=== PATIENT | male | born 1940 | race African-American/Black ===

== ENCOUNTER 2017-03-04 08:21 | Emergency (ER) | payer MEDICAID, MEDICARE ==
[~2017-03-04] VITALS: Ht 177.8 cm; Wt 70.0 kg
[2017-03-04] MEDS ORDERED: METHYLPREDNISOLONE SOD SUCC 125 MG/2 ML VIAL IV STA (09:30)
[2017-03-04] MEDS ORDERED: IPRATROPIUM BROMIDE (0.02%) 0.5MG/2.5ML NEB HHN STA (09:30)
[2017-03-04 09:52] LABS: BASOPHILS % 0.5 % (0.0-2.0); EOSINOPHILS % 1.2 % (0.0-5.0); HEMATOCRIT. 29.4 % (42.0-52.0); LYMPHOCYTES % 11.8 % (20.0-50.0); MEAN CORPUSCULAR HEMOGLOBIN 30.6 pg (28.0-32.0); MEAN CORPUSCULAR VOLUME 90.4 fL (80.0-94.0); MEAN PLATELET VOLUME 8.3 fl (7.4-10.4); MONOCYTES % 7.1 % (2.0-8.0); NEUTROPHILS % 79.4 % (40.0-76.0); PLATELET 163 x1000/uL (130-400); RED BLOOD CELL COUNT 3.25 mill/uL (4.7-6.1); RED CELL DISTRIBUTION WIDTH 15.8 % (11.6-14.6)
[2017-03-04 09:59] LABS: CHLORIDE 106 mEq/L (98-107)
[2017-03-04 10:01] LABS: PROTHROMBIN TIME 10.4 sec
[2017-03-04 10:07] LABS: CARBON DIOXIDE 34 mEq/L (21-32)
[2017-03-04 10:08] LABS: TROPONIN I 0.06 ng/mL (0.00-0.04)
[2017-03-04] MEDS: ALBUTEROL (0.083%) 2.5MG/3ML NEB HHN SCH (10:15)
[2017-03-04] MEDS ORDERED: POTASSIUM CHLORIDE 20MEQ TABLET SR PO ONE (10:30)
[2017-03-04] MEDS ORDERED: IPRATROPIUM/ALBUTEROL 0.5-3(2.5)MG/3ML NEB INH SCH (11:15)
[2017-03-04] MEDS ORDERED: HYDROCODONE/ACETAMINOPHEN 5/325MG TABLET PO PRN (11:15)
[2017-03-04] MEDS ORDERED: HYDRALAZINE 20MG/ML VIAL IV PRN (11:15)
[2017-03-04] MEDS ORDERED: METHYLPREDNISOLONE SOD SUCC 125 MG/2 ML VIAL IV SCH (11:15)
[2017-03-04] MEDS ORDERED: DIPHENHYDRAMINE 50MG/ML VIAL IV PRN (11:15)
[2017-03-04] MEDS ORDERED: ACETAMINOPHEN 325MG TABLET PO PRN (11:15)
[2017-03-04] MEDS ORDERED: ONDANSETRON HCL 4MG/2ML VIAL IV PRN (11:15)
[2017-03-04] MEDS ORDERED: IPRATROPIUM/ALBUTEROL 0.5-3(2.5)MG/3ML NEB INH PRN (11:15)
[2017-03-04] MEDS ORDERED: AZITHROMYCIN 500 MG in DEXT 5% WATER 250 ML IV SCH (11:15)
[2017-03-04] MEDS ORDERED: CLONIDINE 0.1MG TABLET PO PRN (11:15)
[2017-03-04] MEDS ORDERED: CEFTRIAXONE 1 G PREMIX 50 ML IV SCH (11:15)
[2017-03-04 11:30] VITALS: BP 162/89
[2017-03-04] MEDS ORDERED: CEFTRIAXONE 1 G PREMIX 50 ML IV NR (11:45)
[2017-03-04] MEDS ORDERED: AZITHROMYCIN 500 MG in DEXT 5% WATER 250 ML IV NR (12:00)
[2017-03-06] MEDS ORDERED: QUET400T PO (19:42)
[2017-03-06] MEDS ORDERED: MIRT45TA PO (19:43)
== END 2017-03-04 12:55 | disposition left against medical advice (07) ==
LOC: ER 08:21 → CANBEDREQ 12:38 → ER 12:55
DX: J44.1 Chronic obstructive pulmonary disease with (acute) exacerbation (principal); J45.909 Unspecified asthma, uncomplicated; F17.290 Nicotine dependence, other tobacco product, uncomplicated; I51.7 Cardiomegaly; R73.9 Hyperglycemia, unspecified; E87.6 Hypokalemia; N17.9 Acute kidney failure, unspecified; I10 Essential (primary) hypertension; D64.9 Anemia, unspecified
CPT/HCPCS: 36415; 71010; 80053; 83036; 83880; 84484; 85025; 85610; 93005; 96374; 99291; J0456; J2930; J7030; J7611; J0696; J7060

== ENCOUNTER 2017-07-07 02:15 | Inpatient (IN) | payer MEDICARE, MEDICAID ==
[2017-07-07] VITALS (9 sets, daily range): BP systolic 158–194; BP diastolic 78–94
[~2017-07-07] VITALS: Ht 167.6 cm; Wt 89.5 kg
[~2017-07-07 02:15] MED LIST: MIRT45TA PO; QUET400T PO
[2017-07-07] MEDS ORDERED: AZITHROMYCIN 500 MG in DEXT 5% WATER 250 ML IV ONE (02:45)
[2017-07-07] MEDS ORDERED: CEFTRIAXONE 1 G PREMIX 50 ML IV ONE (02:45)
[2017-07-07] MEDS ORDERED: SODIUM CHLORIDE 0.9% 1000ML BAG (SEPSIS BOLUS) IV ONE (02:45)
[2017-07-07 03:07] LABS: HEMATOCRIT. 23.2 % (42.0-52.0); HEMOGLOBIN. 7.9 g/dL (14.0-18.0); MEAN CORPUSCULAR HEMOGLOBIN 31.3 pg (28.0-32.0); MEAN CORPUSCULAR VOLUME 92.2 fL (80.0-94.0); MEAN PLATELET VOLUME 9.6 fl (7.4-10.4); PLATELET 134 x1000/uL (130-400); RED BLOOD CELL COUNT 2.52 mill/uL (4.7-6.1); RED CELL DISTRIBUTION WIDTH 18.3 % (11.6-14.6)
[2017-07-07 03:16] LABS: INR 1.1
[2017-07-07 03:24] LABS: CARBON DIOXIDE 32 mEq/L (21-32); CHLORIDE 95 mEq/L (98-107); ETHANOL BLOOD < 10 mg/dL; TROPONIN I < 0.02 ng/mL (0.00-0.04)
[2017-07-07] MEDS ORDERED: SODIUM CHLORIDE 10% FOR INH 15ML VIAL NEB INH SCH (03:30)
[2017-07-07 05:18] LABS: BG CARBOXYHEMOGLOBIN 0.3 % (0.5-1.5); BG DEOXYHEMOGLOBIN 3.5 % (0.0-5.0); BG FRACTION INSPIRED OXYGEN 35; BG HCO3 ACT 32.8 mmol/L (22.0-26.0); BG METHEMOGLOBIN 0.6 % (0.0-1.5); BG OXYGEN SATURATION 96.5 % (92.0-98.5); BG OXYHEMOGLOBIN 95.6 % (94.0-97.0); BG PCO2 54.3 mmHg (35.0-45.0); BG PH 7.399 (7.350-7.450); BG PO2 90.2 mmHg (75.0-100.0); BG SAMPLE SITE RIGHT RADIAL; BG TIDAL VOLUME(mL) 500 mL; BG TOTAL HEMOGLOBIN 8.8 g/dL (12.0-18.0); BG VENT MODE VENT - A/C; BG VENT RATE 24 set
[2017-07-07 05:38] LABS: CLARITY URINE CLOUDY (CLEAR); COLOR URINE YELLOW (YELLOW); GLUCOSE URINE NEGATIVE (NEGATIVE); KETONES URINE NEGATIVE (NEGATIVE); LEUKOCYTE ESTERASE URINE 2+ (NEGATIVE); NITRITE URINE NEGATIVE (NEGATIVE); OCCULT BLOOD URINE NEGATIVE (NEGATIVE); PH URINE 5.5 (4.5-8.0); PROTEIN URINE 3+ (NEGATIVE); SPECIFIC GRAVITY URINE 1.018 (1.005-1.030); UROBILINOGEN URINE 0.2 E.U./dL (0.2-1.0)
[2017-07-07 05:45] LABS: *AMPHETAMINES SCREEN URINE NEGATIVE (NEGATIVE); *BARBITURATES SCREEN URINE NEGATIVE (NEGATIVE); *BENZODIAZEPINES SCREEN URINE NEGATIVE (NEGATIVE); *COCAINE SCREEN URINE NEGATIVE (NEGATIVE); CANNABINOID URINE SCREEN NEGATIVE (NEGATIVE); METHADONE URINE SCREEN NEGATIVE (NEGATIVE); OPIATES URINE SCREEN NEGATIVE (NEGATIVE); PHENCYCLIDINE URINE SCREEN NEGATIVE (NEGATIVE)
[2017-07-07 06:53] LABS: PLATELET ESTIMATE NORMAL
[2017-07-07] MEDS ORDERED: ONDANSETRON HCL 4MG/2ML VIAL IV PRN (08:15)
[2017-07-07] MEDS ORDERED: ACETAMINOPHEN 325MG TABLET PO PRN (08:15)
[2017-07-07] MEDS ORDERED: NA PHOS,M-B/NA PHOS,DI-BA ENEMA 118ML PR PRN ×3 (08:15→10:45)
[2017-07-07] MEDS ORDERED: MAGNESIUM/ALUMINUM HYDROXIDE/SIMETHICONE 30ML UDC PO PRN (08:15)
[2017-07-07] MEDS ORDERED: MORPHINE SULFATE 2 MG/ML CPJ (NOT FOR IM USE) IV PRN (08:15)
[2017-07-07] MEDS ORDERED: LORAZEPAM 0.5MG TABLET PO PRN (08:15)
[2017-07-07] MEDS ORDERED: GUAIFENESIN 200MG/10ML SUGAR FREE UDC PO PRN (08:15)
[2017-07-07] MEDS ORDERED: DOCUSATE SODIUM 100MG CAPSULE PO PRN (08:15)
[2017-07-07] MEDS ORDERED: DIPHENHYDRAMINE 50MG/ML VIAL IV PRN (08:15)
[2017-07-07] MEDS ORDERED: HYDROCODONE/ACETAMINOPHEN 5/325MG TABLET PO PRN (08:15)
[2017-07-07] MEDS: CLONIDINE 0.1MG TABLET PO PRN (09:54)
[2017-07-07] MEDS ORDERED: DEXT 5%/0.45% NACL KCL 10MEQ/L 1,000 ML IV SCH ×2 (10:00→19:00)
[2017-07-07] MEDS ORDERED: MULTIVIT W/MINERALS PEG (10:17)
[2017-07-07] MEDS ORDERED: FLEETS ENEMA RC (10:17)
[2017-07-07] MEDS ORDERED: THEO200T17 PEG (10:17)
[2017-07-07] MEDS ORDERED: [UNRECOGNIZED DRUG - OTHER] PEG (10:17)
[2017-07-07] MEDS ORDERED: RISP1TAB26 PEG (10:17)
[2017-07-07] MEDS ORDERED: FAMO20TA8 PEG (10:17)
[2017-07-07] MEDS ORDERED: VALP250S4 PEG (10:17)
[2017-07-07] MEDS ORDERED: MAGN800O PEG (10:17)
[2017-07-07] MEDS ORDERED: AMLO10TA80 PEG (10:17)
[2017-07-07] MEDS ORDERED: BISA10SU62 RC (10:17)
[2017-07-07] MEDS ORDERED: DOCU-138 PEG (10:17)
[2017-07-07] MEDS ORDERED: HYDR-4135 PEG (10:17)
[2017-07-07] MEDS ORDERED: DOXA4TAB3 PEG (10:17)
[2017-07-07] MEDS ORDERED: LORA1TAB PEG (10:17)
[2017-07-07] MEDS ORDERED: CRAN3875 PEG (10:17)
[2017-07-07] MEDS ORDERED: LORAZEPAM 1MG TABLET PEG PRN (10:30)
[2017-07-07] MEDS ORDERED: VALPROATE SODIUM 250 MG PEG SCH (10:30)
[2017-07-07] MEDS ORDERED: THEOPHYLLINE ANHYDROUS 200 MG PEG SCH (10:30)
[2017-07-07] MEDS ORDERED: [UNRECOGNIZED DRUG - OTHER] PEG SCH (10:30)
[2017-07-07] MEDS ORDERED: MULTIVIT PEG SCH (10:30)
[2017-07-07] MEDS ORDERED: BISACODYL 10MG SUPP RC PRN (10:30)
[2017-07-07] MEDS ORDERED: [UNRECOGNIZED DRUG - OTHER] RC PRN (10:30)
[2017-07-07] MEDS ORDERED: MINERALS PEG SCH (10:30)
[2017-07-07] MEDS ORDERED: FAMOTIDINE(NEO) 1MG/ML SUSP PEG SCH (10:30)
[2017-07-07] MEDS ORDERED: DOCUSATE SODIUM SUGAR FREE 100MG/10ML UDC PEG PRN (10:45)
[2017-07-07] MEDS ORDERED: MAGNESIUM HYDROXIDE 400MG/5ML 30ML UDC PO PRN (10:45)
[2017-07-07] MEDS ORDERED: VALPROATE SODIUM 250MG/5ML UDC PO SCH (11:00)
[2017-07-07] MEDS: AMLODIPINE 10MG TABLET PEG SCH (11:21)
[2017-07-07] MEDS: FAMOTIDINE 20MG TABLET PEG SCH (11:21)
[2017-07-07] MEDS: DOXAZOSIN MESYLATE 4MG TABLET PEG SCH (11:21)
[2017-07-07] MEDS: VALPROATE SODIUM 250MG/5ML UDC PEG SCH ×2 (11:21→19:58)
[2017-07-07] MEDS: DOCUSATE SODIUM SUGAR FREE 100MG/10ML UDC PEG SCH (11:21)
[2017-07-07] MEDS ORDERED: DEXTROSE 50% WATER 50ML SYRINGE IV PRN (12:30)
[2017-07-07] MEDS: RISPERIDONE 1MG TABLET PEG SCH ×2 (13:00→16:44)
[2017-07-07] MEDS: MULTIVITAMINS,THER W-MINERALS TABLET PEG SCH (13:27)
[2017-07-07] MEDS: HYDRALAZINE HCL 50MG TABLET PEG SCH ×2 (13:28→22:12)
[2017-07-07] MEDS: THEOPHYLLINE ANHYDROUS 80 MG/15 ML 240ML PO SCH ×2 (13:29→22:11)
[2017-07-07] MEDS ORDERED: HYDRALAZINE HCL 50MG TABLET PO SCH (14:00)
[2017-07-07] MEDS ORDERED: FUROSEMIDE 40MG/4ML VIAL IVP NR (14:30)
[2017-07-07 16:53] LABS: CREATINE KINASE 34 IU/L (39-308); CREATINE KINASE MB FRACTION 3.9 ng/mL (0.5-3.6); TROPONIN I < 0.02 ng/mL (0.00-0.04)
[2017-07-07] MEDS: BLOOD SUGAR DIAGNOSTIC STRIP TEST SCH ×2 (17:20→23:51)
[2017-07-07] MEDS ORDERED: INSULIN LISPRO 100 UNITS/ML SUBCUT SCH (18:00)
[2017-07-07] MEDS: IPRATROPIUM/ALBUTEROL 0.5-3(2.5)MG/3ML NEB INH PRN (20:17)
[2017-07-07 23:22] LABS: CREATINE KINASE 32 IU/L (39-308); CREATINE KINASE MB FRACTION 3.3 ng/mL (0.5-3.6); TROPONIN I < 0.02 ng/mL (0.00-0.04)
[2017-07-07] MEDS: INSULIN LISPRO 100 UNITS/ML SUBCUT SCH (23:51)
[2017-07-08] VITALS (12 sets, daily range): BP systolic 130–178; BP diastolic 65–96
[2017-07-08] MEDS: VALPROATE SODIUM 250MG/5ML UDC PEG SCH ×3 (03:17→17:46)
[2017-07-08] MEDS: THEOPHYLLINE ANHYDROUS 80 MG/15 ML 240ML PO SCH ×3 (05:45→21:45)
[2017-07-08] MEDS: HYDRALAZINE HCL 50MG TABLET PEG SCH ×3 (05:45→21:46)
[2017-07-08] MEDS: INSULIN LISPRO 100 UNITS/ML SUBCUT SCH ×3 (06:00→17:47)
[2017-07-08] MEDS: BLOOD SUGAR DIAGNOSTIC STRIP TEST SCH ×3 (06:00→17:47)
[2017-07-08 07:42] LABS: CARBON DIOXIDE 32 mEq/L (21-32); CHLORIDE 96 mEq/L (98-107); CREATINE KINASE 32 IU/L (39-308); HDL CHOLESTEROL 50 mg/dL (40-59); LDL CHOLESTEROL 36 mg/dL (5-100); T4 FREE 0.96 ng/dL (0.76-1.46)
[2017-07-08 07:46] LABS: BASOPHILS % 0.4 % (0.0-2.0); EOSINOPHILS % 2.3 % (0.0-5.0); HEMATOCRIT. 22.5 % (42.0-52.0); HEMOGLOBIN. 7.6 g/dL (14.0-18.0); MEAN CORPUSCULAR HEMOGLOBIN 31.2 pg (28.0-32.0); MEAN CORPUSCULAR VOLUME 92.2 fL (80.0-94.0); MEAN PLATELET VOLUME 9.5 fl (7.4-10.4); NEUTROPHILS % 82.3 % (40.0-76.0); PLATELET 124 x1000/uL (130-400); RED BLOOD CELL COUNT 2.44 mill/uL (4.7-6.1); RED CELL DISTRIBUTION WIDTH 18.5 % (11.6-14.6)
[2017-07-08] MEDS: DOCUSATE SODIUM SUGAR FREE 100MG/10ML UDC PEG SCH (08:19)
[2017-07-08] MEDS: FUROSEMIDE 40MG/4ML VIAL IVP SCH (08:19)
[2017-07-08] MEDS: FAMOTIDINE 20MG TABLET PEG SCH (08:20)
[2017-07-08] MEDS: RISPERIDONE 1MG TABLET PEG SCH ×3 (08:20→17:46)
[2017-07-08] MEDS: AMLODIPINE 10MG TABLET PEG SCH (08:20)
[2017-07-08] MEDS: MULTIVITAMINS,THER W-MINERALS TABLET PEG SCH (08:20)
[2017-07-08] MEDS: DOXAZOSIN MESYLATE 4MG TABLET PEG SCH (08:23)
[2017-07-08] MEDS: IPRATROPIUM/ALBUTEROL 0.5-3(2.5)MG/3ML NEB INH PRN ×4 (08:25→20:00)
[2017-07-08] MEDS ORDERED: LEVOTHYROXINE SODIUM 50MCG TABLET NG NR (11:00)
[2017-07-08 11:33] LABS: BG BASE EXCESS 8.3 mmol/L (-2.0-2.0); BG CARBOXYHEMOGLOBIN 0.3 % (0.5-1.5); BG DEOXYHEMOGLOBIN 4.7 % (0.0-5.0); BG FRACTION INSPIRED OXYGEN 35; BG HCO3 ACT 32.7 mmol/L (22.0-26.0); BG METHEMOGLOBIN 0.5 % (0.0-1.5); BG OXYGEN SATURATION 95.3 % (92.0-98.5); BG OXYHEMOGLOBIN 94.5 % (94.0-97.0); BG PCO2 45.6 mmHg (35.0-45.0); BG PH 7.474 (7.350-7.450); BG PO2 75.2 mmHg (75.0-100.0); BG SAMPLE SITE RIGHT RADIAL; BG TIDAL VOLUME(mL) 500 mL; BG TOTAL HEMOGLOBIN 7.7 g/dL (12.0-18.0); BG VENT MODE VENT - A/C; BG VENT RATE 24 set
[2017-07-08] MEDS: VITAMIN B / W-C 1 TAB PEG SCH (14:06)
[2017-07-09] VITALS (12 sets, daily range): BP systolic 145–182; BP diastolic 62–98
[2017-07-09] MEDS: IPRATROPIUM/ALBUTEROL 0.5-3(2.5)MG/3ML NEB INH PRN ×3 (01:14→19:57)
[2017-07-09] MEDS: THEOPHYLLINE ANHYDROUS 80 MG/15 ML 240ML PO SCH ×5 (03:39→22:23)
[2017-07-09] MEDS: VALPROATE SODIUM 250MG/5ML UDC PEG SCH ×3 (04:11→20:03)
[2017-07-09] MEDS: CLONIDINE 0.1MG TABLET PO PRN ×2 (05:13→16:28)
[2017-07-09] MEDS: HYDRALAZINE HCL 50MG TABLET PEG SCH ×3 (05:14→22:25)
[2017-07-09] MEDS: INSULIN LISPRO 100 UNITS/ML SUBCUT SCH ×4 (06:00→18:00)
[2017-07-09] MEDS: BLOOD SUGAR DIAGNOSTIC STRIP TEST SCH ×4 (06:00→18:25)
[2017-07-09 07:24] LABS: BASOPHILS % 0.3 % (0.0-2.0); EOSINOPHILS % 2.2 % (0.0-5.0); HEMATOCRIT. 22.3 % (42.0-52.0); HEMOGLOBIN. 7.6 g/dL (14.0-18.0); MEAN CORPUSCULAR HEMOGLOBIN 31.6 pg (28.0-32.0); MEAN PLATELET VOLUME 9.3 fl (7.4-10.4); NEUTROPHILS % 80.5 % (40.0-76.0); PLATELET 118 x1000/uL (130-400); RED BLOOD CELL COUNT 2.39 mill/uL (4.7-6.1); RED CELL DISTRIBUTION WIDTH 18.4 % (11.6-14.6)
[2017-07-09] MEDS: MULTIVITAMINS,THER W-MINERALS TABLET PEG SCH (08:10)
[2017-07-09] MEDS: FUROSEMIDE 40MG/4ML VIAL IVP SCH (08:10)
[2017-07-09] MEDS: VITAMIN B / W-C 1 TAB PEG SCH (08:10)
[2017-07-09] MEDS: LEVOTHYROXINE SODIUM 50MCG TABLET NG SCH (08:10)
[2017-07-09] MEDS: DOCUSATE SODIUM SUGAR FREE 100MG/10ML UDC PEG SCH (08:10)
[2017-07-09] MEDS: RISPERIDONE 1MG TABLET PEG SCH ×3 (08:11→16:30)
[2017-07-09] MEDS: AMLODIPINE 10MG TABLET PEG SCH (08:11)
[2017-07-09] MEDS: FAMOTIDINE 20MG TABLET PEG SCH (08:11)
[2017-07-09] MEDS: DOXAZOSIN MESYLATE 4MG TABLET PEG SCH (08:13)
[2017-07-09] MEDS: CLONIDINE 0.1MG TABLET PO SCH ×2 (13:07→22:24)
[2017-07-10] VITALS (21 sets, daily range): BP systolic 125–176; BP diastolic 55–84
[2017-07-10] MEDS: BLOOD SUGAR DIAGNOSTIC STRIP TEST SCH ×4 (00:27→18:23)
[2017-07-10] MEDS: IPRATROPIUM/ALBUTEROL 0.5-3(2.5)MG/3ML NEB INH PRN ×5 (01:57→20:43)
[2017-07-10] MEDS: VALPROATE SODIUM 250MG/5ML UDC PEG SCH ×3 (03:24→21:24)
[2017-07-10] MEDS: CLONIDINE 0.1MG TABLET PO SCH (05:15)
[2017-07-10] MEDS: HYDRALAZINE HCL 50MG TABLET PEG SCH ×3 (05:16→21:26)
[2017-07-10] MEDS: THEOPHYLLINE ANHYDROUS 80 MG/15 ML 240ML PO SCH ×3 (05:17→21:29)
[2017-07-10] MEDS: INSULIN LISPRO 100 UNITS/ML SUBCUT SCH ×4 (05:34→18:00)
[2017-07-10 07:17] LABS: BASOPHILS % 0.3 % (0.0-2.0); EOSINOPHILS % 2.1 % (0.0-5.0); LYMPHOCYTES % 8.9 % (20.0-50.0); MEAN CORPUSCULAR HEMOGLOBIN 32.1 pg (28.0-32.0); MEAN CORPUSCULAR VOLUME 93.9 fL (80.0-94.0); MEAN PLATELET VOLUME 9.2 fl (7.4-10.4); MONOCYTES % 5.5 % (2.0-8.0); NEUTROPHILS % 83.2 % (40.0-76.0); PLATELET 101 x1000/uL (130-400); RED BLOOD CELL COUNT 2.07 mill/uL (4.7-6.1); RED CELL DISTRIBUTION WIDTH 18.6 % (11.6-14.6)
[2017-07-10 08:08] LABS: HEMATOCRIT. 19.5 % (42.0-52.0); HEMOGLOBIN. 6.6 g/dL (14.0-18.0)
[2017-07-10 09:01] LABS: BG BASE EXCESS 8.1 mmol/L (-2.0-2.0); BG CARBOXYHEMOGLOBIN 0.9 % (0.5-1.5); BG DEOXYHEMOGLOBIN 7.4 % (0.0-5.0); BG FRACTION INSPIRED OXYGEN 35; BG HCO3 ACT 34.3 mmol/L (22.0-26.0); BG METHEMOGLOBIN 0.2 % (0.0-1.5); BG OXYGEN SATURATION 92.5 % (92.0-98.5); BG OXYHEMOGLOBIN 91.5 % (94.0-97.0); BG PCO2 59.6 mmHg (35.0-45.0); BG PH 7.378 (7.350-7.450); BG PO2 67.4 mmHg (75.0-100.0); BG SAMPLE SITE RIGHT RADIAL; BG TIDAL VOLUME(mL) 500 mL; BG TOTAL HEMOGLOBIN 7.5 g/dL (12.0-18.0); BG VENT MODE VENT - A/C; BG VENT RATE 16 set
[2017-07-10] MEDS: LEVOTHYROXINE SODIUM 50MCG TABLET NG SCH (09:13)
[2017-07-10] MEDS: VITAMIN B / W-C 1 TAB PEG SCH (09:13)
[2017-07-10] MEDS: FUROSEMIDE 40MG/4ML VIAL IVP SCH (09:13)
[2017-07-10] MEDS: AMLODIPINE 10MG TABLET PEG SCH (09:14)
[2017-07-10] MEDS: DOXAZOSIN MESYLATE 4MG TABLET PEG SCH (09:14)
[2017-07-10] MEDS: RISPERIDONE 1MG TABLET PEG SCH ×3 (09:14→18:28)
[2017-07-10] MEDS: MULTIVITAMINS,THER W-MINERALS TABLET PEG SCH (09:14)
[2017-07-10] MEDS: DOCUSATE SODIUM SUGAR FREE 100MG/10ML UDC PEG SCH (09:14)
[2017-07-10] MEDS: FAMOTIDINE 20MG TABLET PEG SCH (09:14)
[2017-07-10] MEDS: CLONIDINE 0.2MG TABLET PO SCH ×2 (12:27→21:26)
[2017-07-10] MEDS ORDERED: AMIKACIN 500MG in SODIUM CHLORIDE 0.9% 100ML IV NR (17:00)
[2017-07-10] MEDS ORDERED: VANCOMYCIN 2,000 MG in DEXT 5% WATER 500 ML IV NR (17:30)
[2017-07-10] MEDS: CEFTAZIDIME PENTAHYDRATE 1 G in DEXTROSE 5% WATER 50 ML IV SCH (18:50)
[2017-07-11] VITALS (14 sets, daily range): BP systolic 139–173; BP diastolic 56–80
[2017-07-11] MEDS: IPRATROPIUM/ALBUTEROL 0.5-3(2.5)MG/3ML NEB INH PRN ×6 (00:33→23:54)
[2017-07-11] MEDS: CEFTAZIDIME PENTAHYDRATE 1 G in DEXTROSE 5% WATER 50 ML IV SCH (03:41)
[2017-07-11] MEDS: VALPROATE SODIUM 250MG/5ML UDC PEG SCH ×3 (03:49→17:36)
[2017-07-11] MEDS: THEOPHYLLINE ANHYDROUS 80 MG/15 ML 240ML PO SCH ×3 (05:59→21:13)
[2017-07-11] MEDS: LEVOTHYROXINE SODIUM 50MCG TABLET NG SCH (05:59)
[2017-07-11] MEDS: INSULIN LISPRO 100 UNITS/ML SUBCUT SCH ×4 (06:00→17:34)
[2017-07-11] MEDS: CLONIDINE 0.2MG TABLET PO SCH ×3 (06:03→21:11)
[2017-07-11] MEDS: HYDRALAZINE HCL 50MG TABLET PEG SCH ×3 (06:03→21:12)
[2017-07-11] MEDS: BLOOD SUGAR DIAGNOSTIC STRIP TEST SCH ×4 (06:04→17:34)
[2017-07-11 06:21] LABS: BASOPHILS % 0.3 % (0.0-2.0); EOSINOPHILS % 4.2 % (0.0-5.0); HEMATOCRIT. 25.3 % (42.0-52.0); LYMPHOCYTES % 9.6 % (20.0-50.0); MEAN CORPUSCULAR HEMOGLOBIN 31.5 pg (28.0-32.0); MEAN CORPUSCULAR VOLUME 92.6 fL (80.0-94.0); MEAN PLATELET VOLUME 9.5 fl (7.4-10.4); MONOCYTES % 6.1 % (2.0-8.0); NEUTROPHILS % 79.8 % (40.0-76.0); PLATELET 93 x1000/uL (130-400); RED BLOOD CELL COUNT 2.74 mill/uL (4.7-6.1); RED CELL DISTRIBUTION WIDTH 18.5 % (11.6-14.6)
[2017-07-11 07:01] LABS: HEMOGLOBIN. 8.6 g/dL (14.0-18.0)
[2017-07-11] MEDS: DOCUSATE SODIUM SUGAR FREE 100MG/10ML UDC PEG SCH (08:51)
[2017-07-11] MEDS: FUROSEMIDE 40MG/4ML VIAL IVP SCH (08:51)
[2017-07-11] MEDS: VITAMIN B / W-C 1 TAB PEG SCH (08:52)
[2017-07-11] MEDS: RISPERIDONE 1MG TABLET PEG SCH ×3 (08:52→17:36)
[2017-07-11] MEDS: AMLODIPINE 10MG TABLET PEG SCH (08:52)
[2017-07-11] MEDS: MULTIVITAMINS,THER W-MINERALS TABLET PEG SCH (08:52)
[2017-07-11] MEDS: FAMOTIDINE 20MG TABLET PEG SCH (09:50)
[2017-07-11] MEDS: DOXAZOSIN MESYLATE 4MG TABLET PEG SCH (09:50)
[2017-07-11 11:30] LABS: BG BASE EXCESS 4.1 mmol/L (-2.0-2.0); BG CARBOXYHEMOGLOBIN 0.3 % (0.5-1.5); BG DEOXYHEMOGLOBIN 2.6 % (0.0-5.0); BG FRACTION INSPIRED OXYGEN 50; BG HCO3 ACT 30.1 mmol/L (22.0-26.0); BG METHEMOGLOBIN 0.3 % (0.0-1.5); BG OXYGEN SATURATION 97.4 % (92.0-98.5); BG OXYHEMOGLOBIN 96.8 % (94.0-97.0); BG PCO2 53.8 mmHg (35.0-45.0); BG PH 7.366 (7.350-7.450); BG PO2 104.3 mmHg (75.0-100.0); BG SAMPLE SITE RIGHT RADIAL; BG TIDAL VOLUME(mL) 500 mL; BG TOTAL HEMOGLOBIN 8.7 g/dL (12.0-18.0); BG VENT MODE VENT - A/C; BG VENT RATE 18 set
[2017-07-11] MEDS: LEVOFLOXACIN 500MG TABLET PO SCH (16:37)
[2017-07-11] MEDS: AMIKACIN 500MG in SODIUM CHLORIDE 0.9% 100ML IV SCH (16:37)
[2017-07-11] MEDS ORDERED: VANCOMYCIN 1250MG in DEXTROSE 5% WATER 250ML IV SCH (18:00)
[2017-07-12] VITALS (11 sets, daily range): BP systolic 151–193; BP diastolic 64–94
[2017-07-12] MEDS: BLOOD SUGAR DIAGNOSTIC STRIP TEST SCH ×4 (00:08→17:19)
[2017-07-12] MEDS: CLONIDINE 0.1MG TABLET PO PRN ×2 (01:35→17:21)
[2017-07-12] MEDS: VALPROATE SODIUM 250MG/5ML UDC PEG SCH ×3 (03:36→18:56)
[2017-07-12] MEDS: IPRATROPIUM/ALBUTEROL 0.5-3(2.5)MG/3ML NEB INH PRN ×2 (03:56→10:44)
[2017-07-12] MEDS: HYDRALAZINE HCL 50MG TABLET PEG SCH ×2 (05:34→13:34)
[2017-07-12] MEDS: CLONIDINE 0.2MG TABLET PO SCH ×2 (05:34→13:41)
[2017-07-12] MEDS: THEOPHYLLINE ANHYDROUS 80 MG/15 ML 240ML PO SCH ×2 (05:35→13:36)
[2017-07-12] MEDS: INSULIN LISPRO 100 UNITS/ML SUBCUT SCH ×4 (06:00→17:19)
[2017-07-12 06:39] LABS: HEMATOCRIT. 25.4 % (42.0-52.0); HEMOGLOBIN. 8.5 g/dL (14.0-18.0); MEAN CORPUSCULAR HEMOGLOBIN 31.1 pg (28.0-32.0); MEAN CORPUSCULAR VOLUME 92.4 fL (80.0-94.0); MEAN PLATELET VOLUME 9.1 fl (7.4-10.4); PLATELET 87 x1000/uL (130-400); RED BLOOD CELL COUNT 2.74 mill/uL (4.7-6.1); RED CELL DISTRIBUTION WIDTH 18.8 % (11.6-14.6)
[2017-07-12] MEDS: LEVOTHYROXINE SODIUM 50MCG TABLET NG SCH (06:40)
[2017-07-12 08:04] LABS: BG BASE EXCESS 6.1 mmol/L (-2.0-2.0); BG CARBOXYHEMOGLOBIN 0.3 % (0.5-1.5); BG FRACTION INSPIRED OXYGEN 40; BG HCO3 ACT 32.4 mmol/L (22.0-26.0); BG METHEMOGLOBIN 0.1 % (0.0-1.5); BG OXYHEMOGLOBIN 95.6 % (94.0-97.0); BG PCO2 56.1 mmHg (35.0-45.0); BG PH 7.379 (7.350-7.450); BG PO2 86.2 mmHg (75.0-100.0); BG SAMPLE SITE RIGHT RADIAL; BG TIDAL VOLUME(mL) 500 mL; BG TOTAL HEMOGLOBIN 10.4 g/dL (12.0-18.0); BG VENT MODE VENT - A/C; BG VENT RATE 18 set
[2017-07-12] MEDS: DOCUSATE SODIUM SUGAR FREE 100MG/10ML UDC PEG SCH (09:10)
[2017-07-12] MEDS: FUROSEMIDE 40MG/4ML VIAL IVP SCH (09:10)
[2017-07-12] MEDS: DOXAZOSIN MESYLATE 4MG TABLET PEG SCH (09:10)
[2017-07-12] MEDS: RISPERIDONE 1MG TABLET PEG SCH ×3 (09:10→17:01)
[2017-07-12] MEDS: MULTIVITAMINS,THER W-MINERALS TABLET PEG SCH (09:10)
[2017-07-12] MEDS: LEVOFLOXACIN 500MG TABLET PO SCH (09:11)
[2017-07-12] MEDS: AMLODIPINE 10MG TABLET PEG SCH (09:11)
[2017-07-12] MEDS: VITAMIN B / W-C 1 TAB PEG SCH (09:12)
[2017-07-12] MEDS: FAMOTIDINE 20MG TABLET PEG SCH (09:12)
[2017-07-12] MEDS ORDERED: LIDOCAINE HCL 1% 20ML VIAL (Pyxis) INJ ONE (11:48)
[2017-07-12 12:34] LABS: PLATELET ESTIMATE DECREASED
[2017-07-12] MEDS: AMIKACIN 500MG in SODIUM CHLORIDE 0.9% 100ML IV SCH (16:24)
== END 2017-07-12 20:00 | DRG 870 ==
LOC: ER 02:15 → EDBEDREQ 05:50 → 5EST 07:17 → ENRESERV 07:17
PROVIDERS: ADMIT Internal Medicine; ATTEND Internal Medicine
PROC: 5A1955Z Respiratory Ventilation, Greater than 96 Consecutive Hours (ICD-10-PCS; principal; 2017-07-07)
PROC: 30233N1 Transfusion of Nonautologous Red Blood Cells into Peripheral Vein, Percutaneous Approach (ICD-10-PCS; 2017-07-10)
PROC: 02HV33Z Insertion of Infusion Device into Superior Vena Cava, Percutaneous Approach (ICD-10-PCS; 2017-07-12)
PROC: B548ZZA Ultrasonography of Superior Vena Cava, Guidance (ICD-10-PCS; 2017-07-12)
DX: A41.89 Other specified sepsis (principal); J96.20 Acute and chronic respiratory failure, unspecified whether with hypoxia or hypercapnia; J15.1 Pneumonia due to Pseudomonas; I50.33 Acute on chronic diastolic (congestive) heart failure; G93.41 Metabolic encephalopathy; Z99.11 Dependence on respirator [ventilator] status; E46 Unspecified protein-calorie malnutrition; Z93.0 Tracheostomy status; I13.0 Hypertensive heart and chronic kidney disease with heart failure and stage 1 through stage 4 chronic kidney disease, or unspecified chronic kidney disease; J44.0 Chronic obstructive pulmonary disease with (acute) lower respiratory infection; N39.0 Urinary tract infection, site not specified; D57.1 Sickle-cell disease without crisis; E11.22 Type 2 diabetes mellitus with diabetic chronic kidney disease; I27.20 Pulmonary hypertension, unspecified; F41.9 Anxiety disorder, unspecified; N18.9 Chronic kidney disease, unspecified; K59.00 Constipation, unspecified; E03.9 Hypothyroidism, unspecified; B95.2 Enterococcus as the cause of diseases classified elsewhere; Z16.21 Resistance to vancomycin; F19.10 Other psychoactive substance abuse, uncomplicated; Z86.73 Personal history of transient ischemic attack (TIA), and cerebral infarction without residual deficits; Z79.899 Other long term (current) drug therapy; Z93.1 Gastrostomy status; Z68.31 Body mass index [BMI] 31.0-31.9, adult
CPT/HCPCS: 36415; 36569; 36600; 71010; 76937; 80048; 80053; 80061; 80305; 81001; 82375; 82550; 82553; 82805; 82962; 83036; 83605; 83690; 83880; 84439; 84443; 84484; 85025; 85379; 85610; 86850; 86900; 86920; 87040; 87070; 87077; 87086; 87186; 87804; 93005; 93306; 93970; 94002; 94003; 94640; 96374; 96375; 99285; C1725; C1893; G0482; J0278; J0456; J0696; J0713; J1940; J2270; J3370; J3490; J7030; J7040; J7050; J7060; J7131; J7620; P9016; A4315

== ENCOUNTER 2017-07-14 11:34 | Inpatient (IN) | payer MEDICARE, MEDICAID ==
[2017-07-14] VITALS (25 sets, daily range): BP systolic 85–155; BP diastolic 52–109
[~2017-07-14] VITALS: Ht 172.7 cm; Wt 88.5 kg
[~2017-07-14 11:34] MED LIST changes: +AMLO10TA80 PEG; +BISA10SU62 RC; +CRAN3875 PEG; +DOCU-138 PEG; +DOXA4TAB3 PEG; +ETOMIDATE 2MG/ML 10ML VIAL IV ONE; +FAMO20TA8 PEG; +FLEETS ENEMA RC; +HYDR-4135 PEG; +LORA1TAB PEG; +MAGN800O PEG; -MIRT45TA PO; +MULTIVIT W/MINERALS PEG; -QUET400T PO; +RISP1TAB26 PEG; +SUCCINYLCHOLINE CHLORIDE 200MG/10ML VIAL IV ONE; +THEO200T17 PEG; +VALP250S4 PEG; +[UNRECOGNIZED DRUG - OTHER] PEG
[2017-07-14 11:56] LABS: HEMATOCRIT. 24.9 % (42.0-52.0); HEMOGLOBIN. 8.2 g/dL (14.0-18.0); MEAN CORPUSCULAR HEMOGLOBIN 30.8 pg (28.0-32.0); MEAN CORPUSCULAR VOLUME 93.8 fL (80.0-94.0); MEAN PLATELET VOLUME 8.7 fl (7.4-10.4); PLATELET 52 x1000/uL (130-400); RED BLOOD CELL COUNT 2.65 mill/uL (4.7-6.1); RED CELL DISTRIBUTION WIDTH 18.7 % (11.6-14.6)
[2017-07-14 12:10] LABS: INR 1.2
[2017-07-14 12:11] LABS: CARBON DIOXIDE 35 mEq/L (21-32); CHLORIDE 99 mEq/L (98-107); TROPONIN I < 0.02 ng/mL (0.00-0.04)
[2017-07-14 12:14] LABS: BG BASE EXCESS 7.6 mmol/L (-2.0-2.0); BG CARBOXYHEMOGLOBIN 0.9 % (0.5-1.5); BG DEOXYHEMOGLOBIN 3.1 % (0.0-5.0); BG FRACTION INSPIRED OXYGEN 40; BG HCO3 ACT 36.1 mmol/L (22.0-26.0); BG METHEMOGLOBIN 0.4 % (0.0-1.5); BG OXYGEN SATURATION 96.9 % (92.0-98.5); BG OXYHEMOGLOBIN 95.6 % (94.0-97.0); BG PCO2 79.1 mmHg (35.0-45.0); BG PH 7.277 (7.350-7.450); BG SAMPLE SITE LEFT RADIAL; BG TIDAL VOLUME(mL) 500 mL; BG TOTAL HEMOGLOBIN 9.1 g/dL (12.0-18.0); BG VENT MODE VENT - A/C; BG VENT RATE 18 set
[2017-07-14 12:59] LABS: KETONES URINE NEGATIVE (NEGATIVE); LEUKOCYTE ESTERASE URINE 1+ (NEGATIVE); NITRITE URINE NEGATIVE (NEGATIVE); OCCULT BLOOD URINE TRACE (NEGATIVE); PH URINE 5.5 (4.5-8.0); PROTEIN URINE 4+ (NEGATIVE); SPECIFIC GRAVITY URINE 1.023 (1.005-1.030)
[2017-07-14 13:02] LABS: PLATELET ESTIMATE MARKEDLY DECREASED
[2017-07-14 13:03] LABS: CLARITY URINE SL HAZY (CLEAR); COLOR URINE YELLOW (YELLOW)
[2017-07-14] MEDS ORDERED: LEVOFLOXACIN 750MG PREMIX 150 ML IV ONE (13:15)
[2017-07-14] MEDS ORDERED: PIPERACILLIN/TAZ 3.375G PREMIX 50 ML IV ONE (13:15)
[2017-07-14] MEDS ORDERED: VANCOMYCIN 1 G PREMIX 200 ML IV SCH (15:00)
[2017-07-14] MEDS ORDERED: LORAZEPAM 1MG TABLET PO PRN (16:45)
[2017-07-14 17:01] LABS: BG BASE EXCESS 6.2 mmol/L (-2.0-2.0); BG CARBOXYHEMOGLOBIN 0.9 % (0.5-1.5); BG DEOXYHEMOGLOBIN 2.9 % (0.0-5.0); BG HCO3 ACT 33.3 mmol/L (22.0-26.0); BG METHEMOGLOBIN 0.3 % (0.0-1.5); BG OXYGEN SATURATION 97.1 % (92.0-98.5); BG OXYHEMOGLOBIN 95.9 % (94.0-97.0); BG PCO2 63.6 mmHg (35.0-45.0); BG PH 7.337 (7.350-7.450); BG PO2 96.5 mmHg (75.0-100.0); BG SAMPLE SITE RIGHT RADIAL; BG TIDAL VOLUME(mL) 600 mL; BG TOTAL HEMOGLOBIN 9.4 g/dL (12.0-18.0); BG VENT MODE VENT - A/C; BG VENT RATE 18 set
[2017-07-14] MEDS: INSULIN LISPRO 100 UNITS/ML SUBCUT SCH (17:26)
[2017-07-14] MEDS: BLOOD SUGAR DIAGNOSTIC STRIP TEST SCH ×2 (17:26→22:45)
[2017-07-14] MEDS: FUROSEMIDE 40MG/4ML VIAL IVP SCH (17:32)
[2017-07-14] MEDS ORDERED: CEFEPIME 1,000 MG in DEXTROSE 5% WATER 50 ML IV SCH (18:00)
[2017-07-14] MEDS: DEXT 5%/0.45% NACL 1000ML 1,000 ML IV SCH (18:09)
[2017-07-14] MEDS ORDERED: VANCOMYCIN 1500MG in DEXTROSE 5% WATER 250ML IV NR (20:00)
[2017-07-14] MEDS ORDERED: NA PHOS,M-B/NA PHOS,DI-BA ENEMA 118ML PR NR (21:00)
[2017-07-14] MEDS: CEFEPIME 1,000 MG in DEXTROSE 5% WATER 50 ML IV SCH (21:05)
[2017-07-14] MEDS ORDERED: VALPROATE SODIUM 250MG/5ML UDC GT SCH (22:00)
[2017-07-15] VITALS (41 sets, daily range): BP systolic 131–176; BP diastolic 66–111
[2017-07-15] MEDS: DEXTROSE 50% WATER 50ML SYRINGE IV PRN ×2 (00:34→06:41)
[2017-07-15] MEDS: BLOOD SUGAR DIAGNOSTIC STRIP TEST SCH ×4 (04:45→16:45)
[2017-07-15] MEDS: INSULIN LISPRO 100 UNITS/ML SUBCUT SCH ×4 (06:00→17:49)
[2017-07-15 06:03] LABS: BASOPHILS % 0.4 % (0.0-2.0); EOSINOPHILS % 1.6 % (0.0-5.0); HEMATOCRIT. 21.5 % (42.0-52.0); HEMOGLOBIN. 7.3 g/dL (14.0-18.0); LYMPHOCYTES % 8.9 % (20.0-50.0); MEAN CORPUSCULAR HEMOGLOBIN 31.4 pg (28.0-32.0); MEAN CORPUSCULAR VOLUME 91.9 fL (80.0-94.0); MEAN PLATELET VOLUME 9.6 fl (7.4-10.4); MONOCYTES % 8.9 % (2.0-8.0); NEUTROPHILS % 80.2 % (40.0-76.0); PLATELET 57 x1000/uL (130-400); RED BLOOD CELL COUNT 2.34 mill/uL (4.7-6.1); RED CELL DISTRIBUTION WIDTH 18.4 % (11.6-14.6)
[2017-07-15 06:14] LABS: PHOSPHORUS 3.6 mg/dL (2.5-4.9)
[2017-07-15] MEDS: LEVOTHYROXINE SODIUM 50MCG TABLET GT SCH (07:59)
[2017-07-15 08:29] LABS: BG BASE EXCESS 7.1 mmol/L (-2.0-2.0); BG CARBOXYHEMOGLOBIN 0.8 % (0.5-1.5); BG DEOXYHEMOGLOBIN 1.4 % (0.0-5.0); BG FRACTION INSPIRED OXYGEN 40; BG HCO3 ACT 31.2 mmol/L (22.0-26.0); BG METHEMOGLOBIN 0.5 % (0.0-1.5); BG OXYGEN SATURATION 98.6 % (92.0-98.5); BG OXYHEMOGLOBIN 97.3 % (94.0-97.0); BG PCO2 42.3 mmHg (35.0-45.0); BG PH 7.485 (7.350-7.450); BG PO2 118.6 mmHg (75.0-100.0); BG SAMPLE SITE RIGHT RADIAL; BG TIDAL VOLUME(mL) 600 mL; BG TOTAL HEMOGLOBIN 8.4 g/dL (12.0-18.0); BG VENT MODE VENT - A/C; BG VENT RATE 20 set
[2017-07-15] MEDS: IPRATROPIUM/ALBUTEROL 0.5-3(2.5)MG/3ML NEB HHN SCH ×5 (08:29→23:34)
[2017-07-15] MEDS: PANTOPRAZOLE SODIUM 40 MG/VIAL IV SCH (09:41)
[2017-07-15] MEDS: FUROSEMIDE 40MG/4ML VIAL IVP SCH (09:41)
[2017-07-15] MEDS ORDERED: IPRATROPIUM/ALBUTEROL 0.5-3(2.5)MG/3ML NEB HHN PRN (09:45)
[2017-07-15] MEDS ORDERED: LACTULOSE 20G/30ML UDC PO NR (10:00)
[2017-07-15] MEDS ORDERED: BISACODYL 10MG SUPP PR PRN (10:00)
[2017-07-15] MEDS ORDERED: BISACODYL 10MG SUPP PR NR (10:00)
[2017-07-15] MEDS: DOCUSATE SODIUM SUGAR FREE 100MG/10ML UDC NG SCH (11:15)
[2017-07-15] MEDS: BUDESONIDE 0.5MG/2ML NEB HHN SCH ×2 (11:21→20:15)
[2017-07-15] MEDS: LORAZEPAM 1MG TABLET PO PRN (11:37)
[2017-07-15] MEDS: MORPHINE SULFATE 2 MG/ML CPJ (NOT FOR IM USE) IV PRN (11:38)
[2017-07-15] MEDS: ACETYLCYSTEINE 200MG/ML 20% VIAL 4ML INH SCH ×2 (13:08→20:16)
[2017-07-15] MEDS: METHYLPREDNISOLONE SOD SUCC 125 MG/2 ML VIAL IV SCH ×2 (14:04→20:28)
[2017-07-15] MEDS: HYDRALAZINE HCL 50MG TABLET PO SCH ×2 (14:05→20:26)
[2017-07-15] MEDS: RISPERIDONE 1MG TABLET PO SCH ×2 (14:05→20:27)
[2017-07-15] MEDS: THEOPHYLLINE ANHYDROUS 80 MG/15 ML 120ML PO SCH ×2 (14:05→21:19)
[2017-07-15 15:47] LABS: CREATINE KINASE 67 IU/L (39-308); CREATINE KINASE MB FRACTION 3.1 ng/mL (0.5-3.6); TROPONIN I < 0.02 ng/mL (0.00-0.04)
[2017-07-15] MEDS: VANCOMYCIN 1 G PREMIX 200 ML IV SCH (16:10)
[2017-07-15 17:35] LABS: HAPTOGLOBIN 26 mg/dL (30-200)
[2017-07-15] MEDS: DEXT 5%/0.45% NACL 1000ML 1,000 ML IV SCH (17:50)
[2017-07-15] MEDS: CEFEPIME 1,000 MG in DEXTROSE 5% WATER 50 ML IV SCH (20:27)
[2017-07-15] MEDS: AMLODIPINE 5MG TABLET PO SCH (20:27)
[2017-07-15 23:37] LABS: TROPONIN I 0.03 ng/mL (0.00-0.04)
[2017-07-16] VITALS (49 sets, daily range): BP systolic 145–192; BP diastolic 67–98
[2017-07-16] MEDS: MORPHINE SULFATE 2 MG/ML CPJ (NOT FOR IM USE) IV PRN ×2 (02:39→12:27)
[2017-07-16] MEDS: IPRATROPIUM/ALBUTEROL 0.5-3(2.5)MG/3ML NEB HHN SCH ×6 (03:41→23:49)
[2017-07-16] MEDS: BLOOD SUGAR DIAGNOSTIC STRIP TEST SCH ×4 (04:45→22:45)
[2017-07-16] MEDS: INSULIN LISPRO 100 UNITS/ML SUBCUT SCH ×4 (06:00→18:00)
[2017-07-16 06:05] LABS: HEMATOCRIT. 23.1 % (42.0-52.0); HEMOGLOBIN. 7.8 g/dL (14.0-18.0); MEAN CORPUSCULAR HEMOGLOBIN 31.2 pg (28.0-32.0); MEAN CORPUSCULAR VOLUME 92.6 fL (80.0-94.0); MEAN PLATELET VOLUME 9.7 fl (7.4-10.4); RED BLOOD CELL COUNT 2.49 mill/uL (4.7-6.1); RED CELL DISTRIBUTION WIDTH 18.3 % (11.6-14.6)
[2017-07-16 06:16] LABS: PLATELET 48 x1000/uL (130-400)
[2017-07-16] MEDS: HYDRALAZINE HCL 50MG TABLET PO SCH (06:58)
[2017-07-16] MEDS: LEVOTHYROXINE SODIUM 50MCG TABLET GT SCH (06:58)
[2017-07-16] MEDS: RISPERIDONE 1MG TABLET PO SCH ×3 (06:58→21:08)
[2017-07-16] MEDS: METHYLPREDNISOLONE SOD SUCC 125 MG/2 ML VIAL IV SCH (06:59)
[2017-07-16] MEDS: THEOPHYLLINE ANHYDROUS 80 MG/15 ML 120ML PO SCH ×3 (06:59→21:08)
[2017-07-16 07:21] LABS: BG CARBOXYHEMOGLOBIN 0.3 % (0.5-1.5); BG DEOXYHEMOGLOBIN 3.4 % (0.0-5.0); BG HCO3 ACT 29.3 mmol/L (22.0-26.0); BG METHEMOGLOBIN 0.3 % (0.0-1.5); BG OXYGEN SATURATION 96.6 % (92.0-98.5); BG PCO2 41.8 mmHg (35.0-45.0); BG PH 7.463 (7.350-7.450); BG SAMPLE SITE RIGHT RADIAL; BG TIDAL VOLUME(mL) 600 mL; BG TOTAL HEMOGLOBIN 8.3 g/dL (12.0-18.0); BG VENT MODE VENT - A/C; BG VENT RATE 20 set
[2017-07-16] MEDS: PANTOPRAZOLE SODIUM 40 MG/VIAL IV SCH (08:50)
[2017-07-16] MEDS: AMLODIPINE 5MG TABLET PO SCH ×2 (08:50→20:55)
[2017-07-16] MEDS: FUROSEMIDE 40MG/4ML VIAL IVP SCH ×2 (08:50→16:53)
[2017-07-16] MEDS: DOCUSATE SODIUM SUGAR FREE 100MG/10ML UDC NG SCH (08:50)
[2017-07-16] MEDS: HYDROMORPHONE HCL/PF 2MG/ML CPJ IV PRN ×2 (08:52→15:37)
[2017-07-16 09:02] LABS: CREATINE KINASE MB FRACTION 2.8 ng/mL (0.5-3.6); THEOPHYLLINE 4.8 ug/mL (10-20); TROPONIN I 0.03 ng/mL (0.00-0.04)
[2017-07-16] MEDS: ACETYLCYSTEINE 200MG/ML 20% VIAL 4ML INH SCH ×3 (09:04→23:50)
[2017-07-16] MEDS: BUDESONIDE 0.5MG/2ML NEB HHN SCH ×2 (09:05→19:46)
[2017-07-16] MEDS: LORAZEPAM 1MG TABLET PO PRN (12:24)
[2017-07-16] MEDS: HYDRALAZINE HCL 100MG TABLET PO SCH ×2 (13:55→20:55)
[2017-07-16 14:02] LABS: PLATELET ESTIMATE DECREASED
[2017-07-16] MEDS ORDERED: FUROSEMIDE 40MG/4ML VIAL IVP SCH (15:15)
[2017-07-16] MEDS: VANCOMYCIN 1 G PREMIX 200 ML IV SCH (15:22)
[2017-07-16] MEDS: METHYLPREDNISOLONE SOD SUCC 40 MG/ML VIAL IV SCH (16:53)
[2017-07-16] MEDS: CEFEPIME 1,000 MG in DEXTROSE 5% WATER 50 ML IV SCH (20:54)
[2017-07-16] MEDS: NITROGLYCERIN 50MG PREMIX 250 ML IV PRN (21:48)
[2017-07-17] VITALS (77 sets, daily range): BP systolic 29–190; BP diastolic 12–109
[2017-07-17] MEDS: MORPHINE SULFATE 2 MG/ML CPJ (NOT FOR IM USE) IV PRN ×3 (00:32→16:18)
[2017-07-17] MEDS: NITROGLYCERIN 50MG PREMIX 250 ML IV PRN ×5 (02:20→21:34)
[2017-07-17] MEDS: LORAZEPAM 1MG TABLET PO PRN ×2 (03:51→08:41)
[2017-07-17] MEDS: IPRATROPIUM/ALBUTEROL 0.5-3(2.5)MG/3ML NEB HHN SCH ×5 (03:59→20:21)
[2017-07-17] MEDS: BLOOD SUGAR DIAGNOSTIC STRIP TEST SCH ×3 (04:45→17:11)
[2017-07-17] MEDS: INSULIN LISPRO 100 UNITS/ML SUBCUT SCH ×5 (06:00→17:11)
[2017-07-17] MEDS: FUROSEMIDE 40MG/4ML VIAL IVP SCH ×2 (06:17→17:11)
[2017-07-17] MEDS: HYDRALAZINE HCL 100MG TABLET PO SCH ×3 (06:17→21:40)
[2017-07-17] MEDS: RISPERIDONE 1MG TABLET PO SCH ×3 (06:17→21:40)
[2017-07-17] MEDS: THEOPHYLLINE ANHYDROUS 80 MG/15 ML 120ML PO SCH ×3 (06:18→21:52)
[2017-07-17 07:32] LABS: HEMATOCRIT. 21.6 % (42.0-52.0); HEMOGLOBIN. 7.3 g/dL (14.0-18.0); MEAN CORPUSCULAR HEMOGLOBIN 31.6 pg (28.0-32.0); MEAN CORPUSCULAR VOLUME 92.6 fL (80.0-94.0); MEAN PLATELET VOLUME 9.9 fl (7.4-10.4); PLATELET 57 x1000/uL (130-400); RED BLOOD CELL COUNT 2.33 mill/uL (4.7-6.1)
[2017-07-17] MEDS: METHYLPREDNISOLONE SOD SUCC 40 MG/ML VIAL IV SCH ×2 (08:40→17:11)
[2017-07-17] MEDS: MINOXIDIL 2.5MG TABLET PO SCH (08:40)
[2017-07-17] MEDS: CLONIDINE 0.2MG TABLET PO SCH ×3 (08:40→21:40)
[2017-07-17] MEDS: DOCUSATE SODIUM SUGAR FREE 100MG/10ML UDC NG SCH (08:40)
[2017-07-17] MEDS: METOLAZONE 2.5MG TABLET PO SCH (08:41)
[2017-07-17] MEDS: AMLODIPINE 10MG TABLET PO SCH (08:41)
[2017-07-17] MEDS: LEVOTHYROXINE SODIUM 50MCG TABLET GT SCH (08:41)
[2017-07-17] MEDS: PANTOPRAZOLE SODIUM 40 MG/VIAL IV SCH (08:42)
[2017-07-17] MEDS: ACETYLCYSTEINE 200MG/ML 20% VIAL 4ML INH SCH ×2 (08:48→16:24)
[2017-07-17] MEDS: BUDESONIDE 0.5MG/2ML NEB HHN SCH ×2 (08:48→20:22)
[2017-07-17 08:57] LABS: BG BASE EXCESS 5.7 mmol/L (-2.0-2.0); BG CARBOXYHEMOGLOBIN 0.5 % (0.5-1.5); BG DEOXYHEMOGLOBIN 5.6 % (0.0-5.0); BG FRACTION INSPIRED OXYGEN 40; BG HCO3 ACT 30.8 mmol/L (22.0-26.0); BG METHEMOGLOBIN 0.5 % (0.0-1.5); BG OXYGEN SATURATION 94.3 % (92.0-98.5); BG OXYHEMOGLOBIN 93.4 % (94.0-97.0); BG PCO2 48.2 mmHg (35.0-45.0); BG PH 7.423 (7.350-7.450); BG PO2 69.6 mmHg (75.0-100.0); BG SAMPLE SITE RIGHT RADIAL; BG TIDAL VOLUME(mL) 600 mL; BG TOTAL HEMOGLOBIN 8.5 g/dL (12.0-18.0); BG VENT MODE VENT - A/C; BG VENT RATE 20 set
[2017-07-17 09:11] LABS: IMMUNOGLOBULIN A 245 mg/dL (61-437); IMMUNOGLOBULIN G 3853 mg/dL (700-1600); IMMUNOGLOBULIN M 59 mg/dL (15-143)
[2017-07-17 10:46] LABS: PLATELET ESTIMATE MARKEDLY DECREASED
[2017-07-17] MEDS: HYDROMORPHONE HCL/PF 2MG/ML CPJ IV PRN (13:19)
[2017-07-17] MEDS ORDERED: DEXTROSE 50% WATER 50ML SYRINGE IV PRN (15:30)
[2017-07-17] MEDS: CEFEPIME 1,000 MG in DEXTROSE 5% WATER 50 ML IV SCH (21:08)
[2017-07-18] VITALS (77 sets, daily range): BP systolic 100–184; BP diastolic 55–96
[2017-07-18] MEDS: IPRATROPIUM/ALBUTEROL 0.5-3(2.5)MG/3ML NEB HHN SCH ×6 (00:08→20:29)
[2017-07-18] MEDS: ACETYLCYSTEINE 200MG/ML 20% VIAL 4ML INH SCH ×3 (00:08→15:40)
[2017-07-18] MEDS: BLOOD SUGAR DIAGNOSTIC STRIP TEST SCH ×4 (00:22→18:04)
[2017-07-18] MEDS: NITROGLYCERIN 50MG PREMIX 250 ML IV PRN ×3 (02:04→11:58)
[2017-07-18 05:51] LABS: MEAN CORPUSCULAR HEMOGLOBIN 31.2 pg (28.0-32.0); MEAN CORPUSCULAR VOLUME 92.1 fL (80.0-94.0); MEAN PLATELET VOLUME 9.7 fl (7.4-10.4); PLATELET 67 x1000/uL (130-400); RED BLOOD CELL COUNT 2.18 mill/uL (4.7-6.1); RED CELL DISTRIBUTION WIDTH 17.6 % (11.6-14.6)
[2017-07-18] MEDS: INSULIN LISPRO 100 UNITS/ML SUBCUT SCH ×4 (06:00→18:00)
[2017-07-18 06:02] LABS: HEMOGLOBIN. 6.8 g/dL (14.0-18.0)
[2017-07-18 06:03] LABS: HEMATOCRIT. 20.1 % (42.0-52.0)
[2017-07-18 06:06] LABS: PHOSPHORUS 4.8 mg/dL (2.5-4.9)
[2017-07-18] MEDS: CLONIDINE 0.2MG TABLET PO SCH ×3 (06:51→21:16)
[2017-07-18] MEDS: RISPERIDONE 1MG TABLET PO SCH ×3 (06:51→21:16)
[2017-07-18] MEDS: FUROSEMIDE 40MG/4ML VIAL IVP SCH ×2 (06:51→17:03)
[2017-07-18] MEDS: THEOPHYLLINE ANHYDROUS 80 MG/15 ML 120ML PO SCH ×3 (06:52→21:16)
[2017-07-18] MEDS: HYDRALAZINE HCL 100MG TABLET PO SCH ×3 (06:54→21:16)
[2017-07-18] MEDS: LEVOTHYROXINE SODIUM 50MCG TABLET GT SCH (06:55)
[2017-07-18] MEDS: PANTOPRAZOLE SODIUM 40 MG/VIAL IV SCH (08:14)
[2017-07-18] MEDS: DOCUSATE SODIUM SUGAR FREE 100MG/10ML UDC NG SCH (08:14)
[2017-07-18] MEDS: METHYLPREDNISOLONE SOD SUCC 40 MG/ML VIAL IV SCH ×2 (08:14→17:03)
[2017-07-18] MEDS: MINOXIDIL 2.5MG TABLET PO SCH (08:15)
[2017-07-18] MEDS: METOLAZONE 2.5MG TABLET PO SCH (08:15)
[2017-07-18] MEDS: HYDROMORPHONE HCL/PF 2MG/ML CPJ IV PRN (08:15)
[2017-07-18 09:01] LABS: INR 1.2; PARTIAL THROMBOPLASTIN TIME 29.2 sec (23.4-31.0); PROTHROMBIN TIME 12.7 sec (9.4-11.6)
[2017-07-18] MEDS: BUDESONIDE 0.5MG/2ML NEB HHN SCH ×2 (09:03→20:25)
[2017-07-18 09:49] LABS: BG BASE EXCESS 3.7 mmol/L (-2.0-2.0); BG CARBOXYHEMOGLOBIN 0.4 % (0.5-1.5); BG DEOXYHEMOGLOBIN 3.6 % (0.0-5.0); BG FRACTION INSPIRED OXYGEN 40; BG HCO3 ACT 27.7 mmol/L (22.0-26.0); BG METHEMOGLOBIN 0.8 % (0.0-1.5); BG OXYGEN SATURATION 96.4 % (92.0-98.5); BG OXYHEMOGLOBIN 95.2 % (94.0-97.0); BG PCO2 38.7 mmHg (35.0-45.0); BG PH 7.472 (7.350-7.450); BG PO2 87.3 mmHg (75.0-100.0); BG SAMPLE SITE RIGHT RADIAL; BG TIDAL VOLUME(mL) 600 mL; BG TOTAL HEMOGLOBIN 7.5 g/dL (12.0-18.0); BG VENT MODE VENT - A/C; BG VENT RATE 20 set
[2017-07-18] MEDS: AMLODIPINE 10MG TABLET PO SCH (10:37)
[2017-07-18 13:12] LABS: HGB A 74.7 % (94.0-98.0); HGB A2 3.1 % (0.7-3.1); HGB S 22.2 % (0.0); HGB SOLUBILITY Positive (Negative)
[2017-07-18 14:02] LABS: NUCLEATED RED BLOOD CELLS 2 /100 WBC
[2017-07-18 14:03] LABS: PLATELET ESTIMATE DECREASED
[2017-07-18 15:17] LABS: HEPATITIS B SURFACE ANTIGEN NEGATIVE
[2017-07-18 15:44] LABS: HEPATITIS B CORE AB IGM NEGATIVE
[2017-07-18 15:45] LABS: HEPATITIS A AB IGM NEGATIVE (NEGATIVE)
[2017-07-18 17:07] LABS: CHLORIDE 96 mEq/L (98-107)
[2017-07-18 17:15] LABS: CARBON DIOXIDE 33 mEq/L (21-32)
[2017-07-18 17:30] LABS: HEMATOCRIT. 27.5 % (42.0-52.0); HEMOGLOBIN. 9.5 g/dL (14.0-18.0); MEAN CORPUSCULAR HEMOGLOBIN 30.9 pg (28.0-32.0); MEAN CORPUSCULAR VOLUME 89.6 fL (80.0-94.0); MEAN PLATELET VOLUME 9.2 fl (7.4-10.4); PLATELET 62 x1000/uL (130-400); RED BLOOD CELL COUNT 3.07 mill/uL (4.7-6.1); RED CELL DISTRIBUTION WIDTH 17.9 % (11.6-14.6)
[2017-07-18 17:32] LABS: INR 1.2; PROTHROMBIN TIME 12.8 sec (9.4-11.6)
[2017-07-18 18:12] LABS: NUCLEATED RED BLOOD CELLS 1 /100 WBC; PLATELET ESTIMATE DECREASED
[2017-07-18] MEDS: MORPHINE SULFATE 2 MG/ML CPJ (NOT FOR IM USE) IV PRN (18:39)
[2017-07-18] MEDS ORDERED: HYDROMORPHONE HCL/PF 2MG/ML CPJ IV PRN (19:30)
[2017-07-18] MEDS: CEFEPIME 1,000 MG in DEXTROSE 5% WATER 50 ML IV SCH (21:08)
[2017-07-18] MEDS: SILDENAFIL CITRATE 20MG TABLET GT SCH (21:25)
[2017-07-19] VITALS (38 sets, daily range): BP systolic 134–177; BP diastolic 58–111
[2017-07-19] MEDS: BLOOD SUGAR DIAGNOSTIC STRIP TEST SCH ×5 (00:21→23:54)
[2017-07-19] MEDS: ACETYLCYSTEINE 200MG/ML 20% VIAL 4ML INH SCH ×3 (00:30→16:50)
[2017-07-19] MEDS: IPRATROPIUM/ALBUTEROL 0.5-3(2.5)MG/3ML NEB HHN SCH ×6 (00:31→20:50)
[2017-07-19] MEDS: CLONIDINE 0.1MG TABLET PO PRN ×2 (01:06→17:57)
[2017-07-19] MEDS: HYDROMORPHONE HCL/PF 2MG/ML CPJ IV PRN (03:58)
[2017-07-19] MEDS ORDERED: LIDOCAINE HCL/PF 1% 2ML VIAL ONE (05:00)
[2017-07-19] MEDS: INSULIN LISPRO 100 UNITS/ML SUBCUT SCH ×5 (06:00→23:54)
[2017-07-19] MEDS: CLONIDINE 0.2MG TABLET PO SCH ×2 (06:18→14:26)
[2017-07-19] MEDS: RISPERIDONE 1MG TABLET PO SCH ×3 (06:18→21:32)
[2017-07-19] MEDS: THEOPHYLLINE ANHYDROUS 80 MG/15 ML 120ML PO SCH ×3 (06:18→23:22)
[2017-07-19] MEDS: HYDRALAZINE HCL 100MG TABLET PO SCH ×3 (06:18→21:32)
[2017-07-19] MEDS: SILDENAFIL CITRATE 20MG TABLET GT SCH ×3 (06:25→21:31)
[2017-07-19] MEDS: FUROSEMIDE 40MG/4ML VIAL IVP SCH ×2 (06:26→17:04)
[2017-07-19] MEDS: LEVOTHYROXINE SODIUM 50MCG TABLET GT SCH (06:26)
[2017-07-19 07:35] LABS: BG BASE EXCESS 5.6 mmol/L (-2.0-2.0); BG CARBOXYHEMOGLOBIN 0.6 % (0.5-1.5); BG DEOXYHEMOGLOBIN 7.1 % (0.0-5.0); BG HCO3 ACT 30.5 mmol/L (22.0-26.0); BG METHEMOGLOBIN 0.3 % (0.0-1.5); BG OXYGEN SATURATION 92.8 % (92.0-98.5); BG PCO2 46.2 mmHg (35.0-45.0); BG PH 7.437 (7.350-7.450); BG PO2 64.4 mmHg (75.0-100.0); BG SAMPLE SITE RIGHT RADIAL; BG TIDAL VOLUME(mL) 600 mL; BG VENT MODE VENT - A/C; BG VENT RATE 18 set
[2017-07-19 07:59] LABS: BASOPHILS % 0.2 % (0.0-2.0); EOSINOPHILS % 0.5 % (0.0-5.0); HEMATOCRIT. 27.2 % (42.0-52.0); HEMOGLOBIN. 9.4 g/dL (14.0-18.0); LYMPHOCYTES % 9.7 % (20.0-50.0); MEAN CORPUSCULAR HEMOGLOBIN 31.1 pg (28.0-32.0); MEAN CORPUSCULAR VOLUME 89.8 fL (80.0-94.0); MONOCYTES % 8.6 % (2.0-8.0); PLATELET 58 x1000/uL (130-400); RED BLOOD CELL COUNT 3.03 mill/uL (4.7-6.1); RED CELL DISTRIBUTION WIDTH 18.2 % (11.6-14.6)
[2017-07-19] MEDS: DOCUSATE SODIUM SUGAR FREE 100MG/10ML UDC NG SCH (09:47)
[2017-07-19] MEDS: AMLODIPINE 10MG TABLET PO SCH (09:48)
[2017-07-19] MEDS: PANTOPRAZOLE SODIUM 40 MG/VIAL IV SCH (09:48)
[2017-07-19] MEDS: MINOXIDIL 2.5MG TABLET PO SCH (09:48)
[2017-07-19] MEDS: LORAZEPAM 1MG TABLET PO PRN (09:48)
[2017-07-19] MEDS: METHYLPREDNISOLONE SOD SUCC 40 MG/ML VIAL IV SCH (10:03)
[2017-07-19] MEDS: BUDESONIDE 0.5MG/2ML NEB HHN SCH ×2 (16:49→20:50)
[2017-07-19] MEDS: CLONIDINE 0.3MG TABLET PO SCH (21:32)
[2017-07-19] MEDS: CEFEPIME 1,000 MG in DEXTROSE 5% WATER 50 ML IV SCH (23:23)
[2017-07-20] VITALS (12 sets, daily range): BP systolic 129–163; BP diastolic 44–82
[2017-07-20] MEDS: ACETYLCYSTEINE 200MG/ML 20% VIAL 4ML INH SCH ×3 (00:42→16:23)
[2017-07-20] MEDS: IPRATROPIUM/ALBUTEROL 0.5-3(2.5)MG/3ML NEB HHN SCH ×6 (00:42→19:50)
[2017-07-20] MEDS: LEVOTHYROXINE SODIUM 50MCG TABLET GT SCH (05:36)
[2017-07-20] MEDS: CLONIDINE 0.3MG TABLET PO SCH ×3 (05:36→21:26)
[2017-07-20] MEDS: FUROSEMIDE 40MG/4ML VIAL IVP SCH ×2 (05:36→17:24)
[2017-07-20] MEDS: SILDENAFIL CITRATE 20MG TABLET GT SCH ×3 (05:37→21:25)
[2017-07-20] MEDS: RISPERIDONE 1MG TABLET PO SCH ×3 (05:37→21:25)
[2017-07-20] MEDS: HYDRALAZINE HCL 100MG TABLET PO SCH ×3 (05:37→21:26)
[2017-07-20] MEDS: THEOPHYLLINE ANHYDROUS 80 MG/15 ML 120ML PO SCH ×3 (05:37→21:26)
[2017-07-20] MEDS: BLOOD SUGAR DIAGNOSTIC STRIP TEST SCH ×3 (05:46→17:24)
[2017-07-20] MEDS: INSULIN LISPRO 100 UNITS/ML SUBCUT SCH ×3 (05:46→17:24)
[2017-07-20 07:17] LABS: BASOPHILS % 0.1 % (0.0-2.0); EOSINOPHILS % 1.8 % (0.0-5.0); HEMATOCRIT. 26.4 % (42.0-52.0); HEMOGLOBIN. 9.2 g/dL (14.0-18.0); LYMPHOCYTES % 8.1 % (20.0-50.0); MEAN CORPUSCULAR HEMOGLOBIN 31.2 pg (28.0-32.0); MEAN CORPUSCULAR VOLUME 89.7 fL (80.0-94.0); MEAN PLATELET VOLUME 9.4 fl (7.4-10.4); MONOCYTES % 8.2 % (2.0-8.0); NEUTROPHILS % 81.8 % (40.0-76.0); PLATELET 52 x1000/uL (130-400); RED BLOOD CELL COUNT 2.94 mill/uL (4.7-6.1); RED CELL DISTRIBUTION WIDTH 18.4 % (11.6-14.6)
[2017-07-20 08:16] LABS: PHOSPHORUS 2.6 mg/dL (2.5-4.9)
[2017-07-20] MEDS: BUDESONIDE 0.5MG/2ML NEB HHN SCH ×2 (08:45→19:50)
[2017-07-20] MEDS: METHYLPREDNISOLONE SOD SUCC 40 MG/ML VIAL IV SCH (09:01)
[2017-07-20] MEDS: DOCUSATE SODIUM SUGAR FREE 100MG/10ML UDC NG SCH (09:01)
[2017-07-20] MEDS: PANTOPRAZOLE SODIUM 40 MG/VIAL IV SCH (09:01)
[2017-07-20 09:02] LABS: BG BASE EXCESS 4.8 mmol/L (-2.0-2.0); BG DEOXYHEMOGLOBIN 4.8 % (0.0-5.0); BG FRACTION INSPIRED OXYGEN 40; BG HCO3 ACT 28.4 mmol/L (22.0-26.0); BG OXYGEN SATURATION 95.2 % (92.0-98.5); BG OXYHEMOGLOBIN 94.2 % (94.0-97.0); BG PH 7.492 (7.350-7.450); BG PO2 71.7 mmHg (75.0-100.0); BG SAMPLE SITE RIGHT RADIAL; BG TIDAL VOLUME(mL) 600 mL; BG TOTAL HEMOGLOBIN 9.2 g/dL (12.0-18.0); BG VENT MODE VENT - A/C; BG VENT RATE 18 set
[2017-07-20] MEDS: AMLODIPINE 10MG TABLET PO SCH (09:02)
[2017-07-20] MEDS: MINOXIDIL 2.5MG TABLET PO SCH (09:02)
[2017-07-20] MEDS: CEFEPIME 1,000 MG in DEXTROSE 5% WATER 50 ML IV SCH (21:23)
[2017-07-21] VITALS (9 sets, daily range): BP systolic 125–166; BP diastolic 54–69
[2017-07-21] MEDS: BLOOD SUGAR DIAGNOSTIC STRIP TEST SCH ×5 (00:23→23:58)
[2017-07-21] MEDS: HYDROMORPHONE HCL/PF 2MG/ML CPJ IV PRN ×2 (00:25→23:57)
[2017-07-21] MEDS: IPRATROPIUM/ALBUTEROL 0.5-3(2.5)MG/3ML NEB HHN SCH ×6 (03:58→20:37)
[2017-07-21] MEDS: THEOPHYLLINE ANHYDROUS 80 MG/15 ML 120ML PO SCH ×3 (05:16→21:12)
[2017-07-21] MEDS: RISPERIDONE 1MG TABLET PO SCH ×3 (05:19→21:13)
[2017-07-21] MEDS: HYDRALAZINE HCL 100MG TABLET PO SCH ×3 (05:20→21:14)
[2017-07-21] MEDS: SILDENAFIL CITRATE 20MG TABLET GT SCH ×3 (05:21→21:14)
[2017-07-21] MEDS: CLONIDINE 0.3MG TABLET PO SCH ×2 (05:31→13:05)
[2017-07-21] MEDS: INSULIN LISPRO 100 UNITS/ML SUBCUT SCH ×4 (05:40→18:00)
[2017-07-21] MEDS: FUROSEMIDE 40MG/4ML VIAL IVP SCH ×2 (06:37→16:42)
[2017-07-21 08:32] LABS: BG BASE EXCESS 6.4 mmol/L (-2.0-2.0); BG DEOXYHEMOGLOBIN 2.5 % (0.0-5.0); BG FRACTION INSPIRED OXYGEN 40; BG HCO3 ACT 30.3 mmol/L (22.0-26.0); BG METHEMOGLOBIN 0.3 % (0.0-1.5); BG OXYGEN SATURATION 97.5 % (92.0-98.5); BG OXYHEMOGLOBIN 97.2 % (94.0-97.0); BG PH 7.487 (7.350-7.450); BG PO2 103.3 mmHg (75.0-100.0); BG SAMPLE SITE RIGHT RADIAL; BG TIDAL VOLUME(mL) 600 mL; BG VENT MODE VENT - A/C; BG VENT RATE 18 set
[2017-07-21] MEDS: LEVOTHYROXINE SODIUM 50MCG TABLET GT SCH (08:42)
[2017-07-21] MEDS: METHYLPREDNISOLONE SOD SUCC 40 MG/ML VIAL IV SCH (08:42)
[2017-07-21] MEDS: MINOXIDIL 2.5MG TABLET PO SCH ×2 (08:42→11:42)
[2017-07-21] MEDS: DOCUSATE SODIUM SUGAR FREE 100MG/10ML UDC NG SCH (08:42)
[2017-07-21] MEDS: PANTOPRAZOLE SODIUM 40 MG/VIAL IV SCH (08:42)
[2017-07-21] MEDS: AMLODIPINE 10MG TABLET PO SCH ×2 (08:43→11:42)
[2017-07-21] MEDS: BUDESONIDE 0.5MG/2ML NEB HHN SCH ×2 (08:57→20:37)
[2017-07-21] MEDS: CEFEPIME 1,000 MG in DEXTROSE 5% WATER 50 ML IV SCH (21:11)
[2017-07-22] VITALS (12 sets, daily range): BP systolic 130–170; BP diastolic 65–90
[2017-07-22] MEDS: IPRATROPIUM/ALBUTEROL 0.5-3(2.5)MG/3ML NEB HHN SCH ×6 (00:41→20:32)
[2017-07-22] MEDS: INSULIN LISPRO 100 UNITS/ML SUBCUT SCH ×4 (06:00→17:05)
[2017-07-22] MEDS: SILDENAFIL CITRATE 20MG TABLET GT SCH ×3 (06:19→21:04)
[2017-07-22] MEDS: BLOOD SUGAR DIAGNOSTIC STRIP TEST SCH ×3 (06:19→17:01)
[2017-07-22] MEDS: RISPERIDONE 1MG TABLET PO SCH ×3 (06:19→21:03)
[2017-07-22] MEDS: HYDRALAZINE HCL 100MG TABLET PO SCH ×3 (06:19→21:04)
[2017-07-22] MEDS: THEOPHYLLINE ANHYDROUS 80 MG/15 ML 120ML PO SCH ×3 (06:20→21:03)
[2017-07-22] MEDS: FUROSEMIDE 40MG/4ML VIAL IVP SCH (06:28)
[2017-07-22 07:31] LABS: BASOPHILS % 0.1 % (0.0-2.0); EOSINOPHILS % 1.6 % (0.0-5.0); HEMATOCRIT. 26.3 % (42.0-52.0); HEMOGLOBIN. 9.2 g/dL (14.0-18.0); MEAN CORPUSCULAR HEMOGLOBIN 31.2 pg (28.0-32.0); MEAN CORPUSCULAR VOLUME 89.7 fL (80.0-94.0); MEAN PLATELET VOLUME 9.9 fl (7.4-10.4); MONOCYTES % 6.6 % (2.0-8.0); NEUTROPHILS % 83.7 % (40.0-76.0); PLATELET 58 x1000/uL (130-400); RED BLOOD CELL COUNT 2.94 mill/uL (4.7-6.1)
[2017-07-22] MEDS: PANTOPRAZOLE SODIUM 40 MG/VIAL IV SCH (08:35)
[2017-07-22] MEDS: METHYLPREDNISOLONE SOD SUCC 40 MG/ML VIAL IV SCH (08:35)
[2017-07-22] MEDS: DOCUSATE SODIUM SUGAR FREE 100MG/10ML UDC NG SCH (08:35)
[2017-07-22] MEDS: MINOXIDIL 2.5MG TABLET PO SCH (08:37)
[2017-07-22] MEDS: LEVOTHYROXINE SODIUM 50MCG TABLET GT SCH (08:37)
[2017-07-22] MEDS: AMLODIPINE 10MG TABLET PO SCH (08:37)
[2017-07-22] MEDS: BUDESONIDE 0.5MG/2ML NEB HHN SCH (08:49)
[2017-07-22] MEDS ORDERED: POTASSIUM CHLORIDE 20MEQ TABLET SR PO NR (09:15)
[2017-07-22] MEDS ORDERED: POTASSIUM CHLORIDE 20MEQ/PACKET PO NR (09:30)
[2017-07-22 09:56] LABS: BG BASE EXCESS 4.8 mmol/L (-2.0-2.0); BG CARBOXYHEMOGLOBIN 0.1 % (0.5-1.5); BG DEOXYHEMOGLOBIN 3.4 % (0.0-5.0); BG FRACTION INSPIRED OXYGEN 40; BG HCO3 ACT 28.1 mmol/L (22.0-26.0); BG METHEMOGLOBIN 0.4 % (0.0-1.5); BG OXYGEN SATURATION 96.6 % (92.0-98.5); BG OXYHEMOGLOBIN 96.1 % (94.0-97.0); BG PCO2 36.9 mmHg (35.0-45.0); BG PO2 90.4 mmHg (75.0-100.0); BG SAMPLE SITE LEFT RADIAL; BG TIDAL VOLUME(mL) 600 mL; BG TOTAL HEMOGLOBIN 10.4 g/dL (12.0-18.0); BG VENT MODE VENT - A/C; BG VENT RATE 18 set
[2017-07-22] MEDS: HYDROMORPHONE HCL/PF 2MG/ML CPJ IV PRN ×2 (17:11→21:05)
[2017-07-23] VITALS (24 sets, daily range): BP systolic 132–181; BP diastolic 65–106
[2017-07-23] MEDS: IPRATROPIUM/ALBUTEROL 0.5-3(2.5)MG/3ML NEB HHN SCH ×7 (00:30→23:31)
[2017-07-23] MEDS: HYDROMORPHONE HCL/PF 2MG/ML CPJ IV PRN ×2 (04:11→20:52)
[2017-07-23] MEDS: INSULIN LISPRO 100 UNITS/ML SUBCUT SCH ×4 (06:00→17:39)
[2017-07-23] MEDS: BLOOD SUGAR DIAGNOSTIC STRIP TEST SCH ×4 (06:00→17:35)
[2017-07-23] MEDS: HYDRALAZINE HCL 100MG TABLET PO SCH ×3 (06:57→21:07)
[2017-07-23] MEDS: SILDENAFIL CITRATE 20MG TABLET GT SCH ×3 (06:57→21:07)
[2017-07-23] MEDS: RISPERIDONE 1MG TABLET PO SCH ×3 (06:57→21:07)
[2017-07-23] MEDS: THEOPHYLLINE ANHYDROUS 80 MG/15 ML 120ML PO SCH ×3 (06:57→21:59)
[2017-07-23 07:01] LABS: BASOPHILS % 0.1 % (0.0-2.0); EOSINOPHILS % 1.9 % (0.0-5.0); HEMATOCRIT. 29.3 % (42.0-52.0); HEMOGLOBIN. 10.1 g/dL (14.0-18.0); LYMPHOCYTES % 9.3 % (20.0-50.0); MEAN CORPUSCULAR HEMOGLOBIN 31.4 pg (28.0-32.0); MEAN CORPUSCULAR VOLUME 90.8 fL (80.0-94.0); MEAN PLATELET VOLUME 9.7 fl (7.4-10.4); MONOCYTES % 6.3 % (2.0-8.0); NEUTROPHILS % 82.4 % (40.0-76.0); PLATELET 67 x1000/uL (130-400); RED BLOOD CELL COUNT 3.23 mill/uL (4.7-6.1); RED CELL DISTRIBUTION WIDTH 18.4 % (11.6-14.6)
[2017-07-23] MEDS: LEVOTHYROXINE SODIUM 50MCG TABLET GT SCH (08:31)
[2017-07-23] MEDS: DOCUSATE SODIUM SUGAR FREE 100MG/10ML UDC NG SCH (08:31)
[2017-07-23] MEDS: FUROSEMIDE 40MG/4ML VIAL IVP SCH (08:31)
[2017-07-23] MEDS: PANTOPRAZOLE SODIUM 40 MG/VIAL IV SCH (08:31)
[2017-07-23] MEDS: AMLODIPINE 10MG TABLET PO SCH (08:32)
[2017-07-23] MEDS: MINOXIDIL 2.5MG TABLET PO SCH (08:32)
[2017-07-23 08:33] LABS: PHOSPHORUS 2.4 mg/dL (2.5-4.9); THEOPHYLLINE 6.9 ug/mL (10-20)
[2017-07-23] MEDS ORDERED: POTASSIUM PHOS,M-BASIC-D-BASIC 10 MMOL in DEXT 5% WATER 246.6667 ML IV NR (10:00)
[2017-07-23] MEDS: CLONIDINE 0.1MG TABLET PO PRN ×2 (10:22→18:11)
[2017-07-24] VITALS (12 sets, daily range): BP systolic 134–186; BP diastolic 63–113
[2017-07-24] MEDS: IPRATROPIUM/ALBUTEROL 0.5-3(2.5)MG/3ML NEB HHN SCH ×5 (03:17→20:35)
[2017-07-24] MEDS: SILDENAFIL CITRATE 20MG TABLET GT SCH ×3 (05:22→21:09)
[2017-07-24] MEDS: THEOPHYLLINE ANHYDROUS 80 MG/15 ML 120ML PO SCH ×3 (05:22→21:07)
[2017-07-24] MEDS: RISPERIDONE 1MG TABLET PO SCH ×3 (05:22→21:07)
[2017-07-24] MEDS: HYDRALAZINE HCL 100MG TABLET PO SCH ×3 (05:22→21:08)
[2017-07-24] MEDS: BLOOD SUGAR DIAGNOSTIC STRIP TEST SCH ×5 (05:23→23:09)
[2017-07-24] MEDS: INSULIN LISPRO 100 UNITS/ML SUBCUT SCH ×5 (05:23→23:09)
[2017-07-24] MEDS: LEVOTHYROXINE SODIUM 50MCG TABLET GT SCH (07:30)
[2017-07-24 08:04] LABS: PHOSPHORUS 2.8 mg/dL (2.5-4.9)
[2017-07-24 08:06] LABS: BASOPHILS % 0.2 % (0.0-2.0); EOSINOPHILS % 2.4 % (0.0-5.0); HEMATOCRIT. 27.4 % (42.0-52.0); HEMOGLOBIN. 9.5 g/dL (14.0-18.0); LYMPHOCYTES % 10.2 % (20.0-50.0); MEAN CORPUSCULAR HEMOGLOBIN 31.4 pg (28.0-32.0); MEAN CORPUSCULAR VOLUME 90.8 fL (80.0-94.0); MEAN PLATELET VOLUME 9.7 fl (7.4-10.4); MONOCYTES % 5.3 % (2.0-8.0); NEUTROPHILS % 81.9 % (40.0-76.0); PLATELET 83 x1000/uL (130-400); RED BLOOD CELL COUNT 3.02 mill/uL (4.7-6.1); RED CELL DISTRIBUTION WIDTH 18.1 % (11.6-14.6)
[2017-07-24] MEDS: DOCUSATE SODIUM SUGAR FREE 100MG/10ML UDC NG SCH (12:13)
[2017-07-24] MEDS: PANTOPRAZOLE SODIUM 40 MG/VIAL IV SCH (12:13)
[2017-07-24] MEDS: MINOXIDIL 2.5MG TABLET PO SCH (12:14)
[2017-07-24] MEDS: FUROSEMIDE 40MG/4ML VIAL IVP SCH (12:14)
[2017-07-24] MEDS: AMLODIPINE 10MG TABLET PO SCH (12:14)
[2017-07-24] MEDS: HYDROMORPHONE HCL/PF 2MG/ML CPJ IV PRN (20:29)
[2017-07-25] VITALS (12 sets, daily range): BP systolic 139–169; BP diastolic 59–91
[2017-07-25] MEDS: IPRATROPIUM/ALBUTEROL 0.5-3(2.5)MG/3ML NEB HHN SCH ×6 (00:29→20:34)
[2017-07-25] MEDS: CLONIDINE 0.1MG TABLET PO PRN (02:58)
[2017-07-25] MEDS: HYDROMORPHONE HCL/PF 2MG/ML CPJ IV PRN (03:26)
[2017-07-25] MEDS: RISPERIDONE 1MG TABLET PO SCH ×3 (05:08→22:08)
[2017-07-25] MEDS: HYDRALAZINE HCL 100MG TABLET PO SCH ×3 (05:08→22:09)
[2017-07-25] MEDS: THEOPHYLLINE ANHYDROUS 80 MG/15 ML 120ML PO SCH ×3 (05:08→22:08)
[2017-07-25] MEDS: SILDENAFIL CITRATE 20MG TABLET GT SCH ×3 (05:20→22:08)
[2017-07-25] MEDS: BLOOD SUGAR DIAGNOSTIC STRIP TEST SCH ×3 (06:00→18:31)
[2017-07-25] MEDS: INSULIN LISPRO 100 UNITS/ML SUBCUT SCH ×3 (06:00→18:00)
[2017-07-25] MEDS: DOCUSATE SODIUM SUGAR FREE 100MG/10ML UDC NG SCH (11:40)
[2017-07-25] MEDS: FUROSEMIDE 40MG/4ML VIAL IVP SCH (11:40)
[2017-07-25] MEDS: PANTOPRAZOLE SODIUM 40 MG/VIAL IV SCH (11:40)
[2017-07-25] MEDS: LEVOTHYROXINE SODIUM 50MCG TABLET GT SCH (11:40)
[2017-07-25] MEDS: AMLODIPINE 10MG TABLET PO SCH (11:42)
[2017-07-25] MEDS: MINOXIDIL 2.5MG TABLET PO SCH (11:42)
[2017-07-26] VITALS (11 sets, daily range): BP systolic 142–178; BP diastolic 61–93
[2017-07-26] MEDS: IPRATROPIUM/ALBUTEROL 0.5-3(2.5)MG/3ML NEB HHN SCH ×6 (00:48→21:03)
[2017-07-26] MEDS: BLOOD SUGAR DIAGNOSTIC STRIP TEST SCH ×4 (00:55→18:00)
[2017-07-26] MEDS: HYDRALAZINE HCL 100MG TABLET PO SCH ×3 (05:26→21:03)
[2017-07-26] MEDS: RISPERIDONE 1MG TABLET PO SCH ×3 (05:27→21:02)
[2017-07-26] MEDS: SILDENAFIL CITRATE 20MG TABLET GT SCH ×3 (05:27→21:02)
[2017-07-26] MEDS: THEOPHYLLINE ANHYDROUS 80 MG/15 ML 120ML PO SCH ×3 (05:28→21:03)
[2017-07-26] MEDS: INSULIN LISPRO 100 UNITS/ML SUBCUT SCH ×4 (05:44→18:00)
[2017-07-26 06:28] LABS: BASOPHILS % 0.4 % (0.0-2.0); HEMATOCRIT. 26.5 % (42.0-52.0); HEMOGLOBIN. 9.2 g/dL (14.0-18.0); LYMPHOCYTES % 8.2 % (20.0-50.0); MEAN CORPUSCULAR HEMOGLOBIN 31.4 pg (28.0-32.0); MEAN CORPUSCULAR VOLUME 90.6 fL (80.0-94.0); MEAN PLATELET VOLUME 9.5 fl (7.4-10.4); MONOCYTES % 5.5 % (2.0-8.0); NEUTROPHILS % 82.9 % (40.0-76.0); PLATELET 101 x1000/uL (130-400); RED BLOOD CELL COUNT 2.93 mill/uL (4.7-6.1)
[2017-07-26] MEDS: LEVOTHYROXINE SODIUM 50MCG TABLET GT SCH (06:37)
[2017-07-26] MEDS: AMLODIPINE 10MG TABLET PO SCH (09:00)
[2017-07-26] MEDS: MINOXIDIL 2.5MG TABLET PO SCH (09:00)
[2017-07-26] MEDS: PANTOPRAZOLE SODIUM 40 MG/VIAL IV SCH (13:43)
[2017-07-26] MEDS: DOCUSATE SODIUM SUGAR FREE 100MG/10ML UDC NG SCH (13:43)
[2017-07-26] MEDS: FUROSEMIDE 40MG/4ML VIAL IVP SCH (13:43)
[2017-07-26] MEDS: CLONIDINE 0.1MG TABLET PO PRN ×2 (13:46→23:15)
[2017-07-26] MEDS: HYDROMORPHONE HCL/PF 2MG/ML CPJ IV PRN (23:55)
[2017-07-27] VITALS: BP 164/68
[2017-07-27] MEDS: INSULIN LISPRO 100 UNITS/ML SUBCUT SCH
[2017-07-27] MEDS: BLOOD SUGAR DIAGNOSTIC STRIP TEST SCH (00:19)
[2017-07-27 00:36] VITALS: BP 161/72
[2017-07-27 00:45] VITALS: BP 160/69
== END 2017-07-27 01:00 | DRG 870 ==
LOC: ER 11:35 → EDBEDREQSVC 12:09 → EDBEDREQ 13:20 → CVICU 13:43 → EDBEDREQ 13:45 → ENRESERV 14:03 → EDBEDREQ 15:42 → 5EST 07-19 14:58
PROVIDERS: ADMIT Internal Medicine; ATTEND Internal Medicine
PROC: 5A1955Z Respiratory Ventilation, Greater than 96 Consecutive Hours (ICD-10-PCS; principal; 2017-07-14)
PROC: 02HV33Z Insertion of Infusion Device into Superior Vena Cava, Percutaneous Approach (ICD-10-PCS; 2017-07-18)
PROC: B548ZZA Ultrasonography of Superior Vena Cava, Guidance (ICD-10-PCS; 2017-07-18)
PROC: 5A1D70Z Performance of Urinary Filtration, Intermittent, Less than 6 Hours Per Day (ICD-10-PCS; 2017-07-18)
PROC: 30233N1 Transfusion of Nonautologous Red Blood Cells into Peripheral Vein, Percutaneous Approach (ICD-10-PCS; 2017-07-18)
PROC: 5A1D70Z Performance of Urinary Filtration, Intermittent, Less than 6 Hours Per Day (ICD-10-PCS; 2017-07-19)
PROC: 5A1D70Z Performance of Urinary Filtration, Intermittent, Less than 6 Hours Per Day (ICD-10-PCS; 2017-07-21)
PROC: 0W993ZZ Drainage of Right Pleural Cavity, Percutaneous Approach (ICD-10-PCS; 2017-07-23)
PROC: 5A1D70Z Performance of Urinary Filtration, Intermittent, Less than 6 Hours Per Day (ICD-10-PCS; 2017-07-23)
PROC: 5A1D70Z Performance of Urinary Filtration, Intermittent, Less than 6 Hours Per Day (ICD-10-PCS; 2017-07-24)
PROC: 5A1D70Z Performance of Urinary Filtration, Intermittent, Less than 6 Hours Per Day (ICD-10-PCS; 2017-07-25)
PROC: 5A1D70Z Performance of Urinary Filtration, Intermittent, Less than 6 Hours Per Day (ICD-10-PCS; 2017-07-26)
DX: A41.9 Sepsis, unspecified organism (principal); J96.21 Acute and chronic respiratory failure with hypoxia; E43 Unspecified severe protein-calorie malnutrition; J95.851 Ventilator associated pneumonia; J15.6 Pneumonia due to other Gram-negative bacteria; G93.40 Encephalopathy, unspecified; Z99.11 Dependence on respirator [ventilator] status; J90 Pleural effusion, not elsewhere classified; I13.2 Hypertensive heart and chronic kidney disease with heart failure and with stage 5 chronic kidney disease, or end stage renal disease; I50.33 Acute on chronic diastolic (congestive) heart failure; N18.6 End stage renal disease; J44.0 Chronic obstructive pulmonary disease with (acute) lower respiratory infection; N13.8 Other obstructive and reflux uropathy; J44.1 Chronic obstructive pulmonary disease with (acute) exacerbation; N17.9 Acute kidney failure, unspecified; N39.0 Urinary tract infection, site not specified; Z93.0 Tracheostomy status; D57.1 Sickle-cell disease without crisis; E11.649 Type 2 diabetes mellitus with hypoglycemia without coma; D69.6 Thrombocytopenia, unspecified; I27.20 Pulmonary hypertension, unspecified; R13.10 Dysphagia, unspecified; Z78.1 Physical restraint status; E03.9 Hypothyroidism, unspecified; B19.20 Unspecified viral hepatitis C without hepatic coma; B95.7 Other staphylococcus as the cause of diseases classified elsewhere; D50.9 Iron deficiency anemia, unspecified; E11.22 Type 2 diabetes mellitus with diabetic chronic kidney disease; E78.5 Hyperlipidemia, unspecified; F41.9 Anxiety disorder, unspecified; G40.909 Epilepsy, unspecified, not intractable, without status epilepticus; I25.10 Atherosclerotic heart disease of native coronary artery without angina pectoris; N40.1 Benign prostatic hyperplasia with lower urinary tract symptoms; Y84.8 Other medical procedures as the cause of abnormal reaction of the patient, or of later complication, without mention of misadventure at the time of the procedure; Z86.73 Personal history of transient ischemic attack (TIA), and cerebral infarction without residual deficits; Z87.440 Personal history of urinary (tract) infections; Z93.1 Gastrostomy status; Z99.2 Dependence on renal dialysis; Z79.899 Other long term (current) drug therapy
CPT/HCPCS: 32555; 36415; 36556; 36600; 51702; 71010; 74000; 76604; 76937; 80048; 80053; 80198; 80202; 81001; 82040; 82270; 82375; 82550; 82553; 82784; 82805; 82962; 83010; 83021; 83605; 83615; 83735; 83880; 84100; 84157; 84478; 84484; 85025; 85610; 85660; 85730; 86334; 86705; 86709; 86803; 86850; 86900; 86920; 87040; 87070; 87086; 87186; 87205; 87340; 88108; 88312; 89050; 93005; 93970; 94002; 94003; 94640; 94667; 96365; 96368; 97163; 99285; A6261; C1752; C9113; J0330; J0692; J1170; J1940; J1956; J2270; J2543; J2920; J2930; J3370; J3490; J7030; J7040; J7060; J7070; J7608; J7620; J7626; P9016